=== PATIENT | male | born 1950 | race Caucasian/White ===

== ENCOUNTER 2018-04-04 10:24 | Observation (INO) | payer BC, MEDICARE ==
[~2018-04-04] VITALS: Ht 182.9 cm; Wt 106.6 kg
[2018-04-04] VITALS (17 sets, daily range): BP systolic 72–144; BP diastolic 36–81
[2018-04-04] MEDS ORDERED: ATENOLOL 50 MG TAB PO SCH (18:00)
--- NOTE | 2018-04-04 19:41 | History and Physical ---
PRIMARY CARE PHYSICIAN: Dr. Brown with [facility]. CARE ASSISTANT: Dr. Rendon at [facility]. REASON FOR ADMISSION: Episode of slurred episode and right hand weakness earlier this morning. HISTORY OF PRESENT ILLNESS: Mr. Aron Nance is a 67-year-old male. He has history of hypertension, history of paroxysmal atrial fibrillation, gastroesophageal reflux disease, and history of BPH. He stated that he was in usual state of health until yesterday. The night before, he has taken a dose of Viagra, which did not help him. He worked outside yesterday. 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 He felt very weak and he also felt like he was having some disrupted vision for a brief period of time and he started noticing some slurred speech, hence he drove himself to [facility] and in the emergency room, he had a CT brain done that was negative. He was found to be in normal sinus rhythm. He had a creatinine of 1.3. Other than that, no other abnormality was noted. No focal deficits were noted. He did not have any facial droop. He was having right facial paresthesias that are currently resolved. REVIEW OF SYSTEMS GENERAL: He is afebrile. He had some right upper extremity and right facial weakness and slurred speech that is currently resolved. ENT: Denies any ear, nose, or throat pain or drainage. CARDIOVASCULAR: Denies any chest pain, shortness of breath, palpitations, or syncopal episodes. RESPIRATORY: Denies any cough, shortness of breath, or sputum production. GI: Denies any nausea, vomiting, abdominal pain, or diarrhea. NEUROLOGICAL: Denies any headaches or dizziness. He had right facial and right upper extremity weakness and paresthesias that is currently improved and slurred speech also improved. MUSCULOSKELETAL: Denies any joint pain or swelling. INTEGUMENTARY: Denies any ulcers or rash. PAST MEDICAL HISTORY: Includes history of hypertension, gastroesophageal reflux disease, paroxysmal atrial fibrillation, and BPH. PAST SURGICAL HISTORY: History of hip replacement x2 and history of knee scopes, appendectomy, and colonoscopies. ALLERGIES: NO KNOWN DRUG ALLERGIES. HOME MEDICATIONS: Reviewed per MAR. FAMILY HISTORY: Mother has history of atrial fibrillation. PHYSICAL EXAMINATION VITAL SIGNS: At this time, temperature 98.2, heart rate is 55, respirations of 15, blood pressure 121/65, and SpO2 of 98% on room air. GENERAL: On exam, the patient is awake, alert, and oriented. He is currently not in any acute distress. HEENT: Head is normocephalic, atraumatic. Eyes, normal extraocular movements noted. ENT, moist mucous membranes noted. NECK: Supple. No raised JVD. CARDIOVASCULAR: Rate and rhythm regular. LUNGS: Clear to auscultation bilaterally. GI: Abdomen is soft and nontender. Bowel sounds present. NEUROLOGIC: Cranial nerves II-XII grossly intact. Power and tone is normal in the bilateral upper and lower extremities. PSYCHIATRIC: Normal mood and affect. INTEGUMENTARY: No ulcers or rash. MUSCULOSKELETAL: No joint swelling or tenderness noted. LABORATORY DATA: Labs done in the emergency room; CBC: WBC count of 7.6, hemoglobin 14.9, hematocrit 40.9, and platelet count of 192,000. BMP: Sodium 140, potassium 4.1, chloride 104, CO2 of 28, BUN of 17, creatinine 1.26, and GFR is over 60. LFTs are within normal limits. UA is negative. PT/INR 10.8 and 1.02. ASSESSMENT: A 67-year-old male with; 1. Episode of right upper extremity weakness, slurred speech, and right facial paresthesias and weakness that is currently resolved, possibly a transient ischemic attack. 2. Hypertension. 3. History of paroxysmal atrial fibrillation. 4. History of benign prostatic hypertrophy. PLAN: The patient will be under observation status. Patient is on full-dose aspirin at home, which will be resumed. We will also place him on statin. We will obtain a lipid panel in the morning. We will obtain MRI, carotid Dopplers, and echocardiogram as part of TIA/stroke workup. If the workup is negative and if the patient remains stable without any focal deficits, he will likely be discharged home tomorrow. We will resume all his home medications at this time. CODE STATUS: Full code. Surrogate decision maker is his spouse. Job#: [id number] SHELLY
[2018-04-04] MEDS ORDERED: TERAZOSIN HCL 5 MG CAP PO SCH (21:00)
[2018-04-04] MEDS ORDERED: ATORVASTATIN 10 MG TAB PO SCH (21:00)
[2018-04-05] VITALS: BP 114/59
[2018-04-05 04:00] VITALS: BP 133/69
[2018-04-05 05:11] LABS: CHOL/HDL RATIO 3.4 (3.9-4.7)
[2018-04-05] MEDS ORDERED: PANTOPRAZOLE SOD 40 MG TABEC PO SCH (07:30)
[2018-04-05 08:04] VITALS: BP 127/64
[2018-04-05] MEDS ORDERED: ASPIRIN 325 MG TAB PO SCH (09:00)
[2018-04-05] MEDS ORDERED: TERAZOSIN HCL 5 MG CAP PO SCH (09:00)
[2018-04-05] MEDS ORDERED: TERAZOSIN HCL5 MG PO (11:33)
[2018-04-05] MEDS ORDERED: NEXIUM20 M1 PO (11:33)
[2018-04-05] MEDS ORDERED: ATENOLOL50 MG PO (11:33)
[2018-04-05] MEDS ORDERED: ZEGERID 20 MG1 EACH PO (11:33)
[2018-04-05] MEDS ORDERED: ATORVASTATIN CA20 MG PO (11:36)
--- NOTE | 2018-04-05 12:29 | Discharge Summary ---
DISPOSITION: Discharge the patient home. DISCHARGE DIAGNOSES 1. Right-sided weakness and facial paresthesias that is completely resolved. 2. History of hypertension. 3. Paroxysmal atrial fibrillation. 4. History of benign prostatic hypertrophy. 5. Dyslipidemia. HOSPITAL COURSE: Mr. Aron Nance is a 67-year-old male. The patient presented to the emergency room at [facility] with right-sided weakness and also right facial paresthesias. He had a CT brain done over there that was negative. He was transferred to [facility] for further observation. His symptoms have completely resolved. He was at his baseline mental status and also neurologically, he did not have any deficits when he presented here. He has been in sinus rhythm here during the hospital stay. He is on full-dose aspirin for anticoagulation, which was resumed. All his home medications were continued. He is feeling better and he had echo and carotid Dopplers done, which did not show any significant abnormality. He had a lipid panel done. His HDL was low at 36, hence he was initiated on atorvastatin. Hemoglobin A1c was 5.5. He did not have an MRI done as he had a prosthetic hip. As he is feeling better, he will be discharged home today. He needs to follow up with his primary care physician as outpatient in 1 week. I have seen and examined the patient on the day of discharge. CONDITION AT TIME OF DISCHARGE: Stable. MEDICATIONS: Per NOV. ACTIVITY: As tolerated. DIET: Heart-healthy diet. FOLLOWUP: The patient was advised to follow up with his PCP in 1 week. Job#: [id number] AMY
[2018-04-05] MEDS ORDERED: ATENOLOL 50 MG TAB PO SCH (21:00)
== END 2018-04-05 11:51 | disposition home or self-care (01) ==
LOC: FSED 10:24 → ICU 15:10 → MED/SURG 20:47
PROVIDERS: ADMIT Family Medicine; ATTEND Family Medicine
DX: R20.2 Paresthesia of skin (principal); R47.81 Slurred speech; I48.0 Paroxysmal atrial fibrillation; N40.0 Benign prostatic hyperplasia without lower urinary tract symptoms; I10 Essential (primary) hypertension; R53.1 Weakness; K21.9 Gastro-esophageal reflux disease without esophagitis; Z96.649 Presence of unspecified artificial hip joint; E78.5 Hyperlipidemia, unspecified
CPT/HCPCS: 36415; 80061; 83036; 93005; 93306; 93880; 96360; 97161; G0378 ×2

== ENCOUNTER 2021-02-04 14:46 | Emergency (ER) | payer MEDICARE ==
[~2021-02-04] VITALS: Ht 182.9 cm; Wt 106.6 kg
[~2021-02-04 14:46] MED LIST: ATENOLOL50 MG PO; ATORVASTATIN CA20 MG PO; NEXIUM20 M1 PO; TERAZOSIN HCL5 MG PO; ZEGERID 20 MG1 EACH PO
[2021-02-04] MEDS ORDERED: TERAZOSIN HCL1 MG PO (15:05)
[2021-02-04 15:35] LABS: COLOR,URINE STRAW (YELLOW)
[2021-02-04 15:36] LABS: CLARITY,URINE CLEAR (CLEAR); KETONES,URINE NEGATIVE (NEGATIVE); LEUKOCYTE ESTERASE ,URINE NEGATIVE (NEGATIVE); NITRITE,URINE NEGATIVE (NEGATIVE); PROTEIN,URINE DIPSTICK NEGATIVE (NEGATIVE); URINE UROBILINOGEN 0.2 mg/dL (0.2 - 1)
[2021-02-04 15:48] LABS: BACTERIA,URINE RARE /HPF
== END 2021-02-04 16:19 | disposition home or self-care (01) ==
LOC: ER 14:52
DX: C61 Malignant neoplasm of prostate (principal); R33.8 Other retention of urine; I48.91 Unspecified atrial fibrillation; I10 Essential (primary) hypertension; K21.9 Gastro-esophageal reflux disease without esophagitis; E78.5 Hyperlipidemia, unspecified; Z92.3 Personal history of irradiation; Z88.1 Allergy status to other antibiotic agents; Z88.8 Allergy status to other drugs, medicaments and biological substances; Z79.899 Other long term (current) drug therapy
CPT/HCPCS: 51700; 81001; 87086; 99283

== ENCOUNTER 2022-01-22 12:33 | Observation (INO) | payer MEDICARE ==
[~2022-01-22] VITALS: Ht 188 cm; Wt 101.6 kg
[~2022-01-22 12:33] MED LIST changes: +TERAZOSIN HCL1 MG PO
[2022-01-22 13:14] LABS: BASOPHILS % 0.9 % (0.0-1.0); EOSINOPHILS # (AUTO) 0.2 (0.0-0.4); EOSINOPHILS % 3.4 % (0.0-6.0); HEMATOCRIT 39.8 % (38.2-49.6); LYMPHOCYTES # (AUTO) 0.9 (1.0-3.2); LYMPHOCYTES % 20.5 % (18.0-39.1); MEAN CORPUSCULAR HEMOGLOBIN 29.4 pg (28-32); MEAN CORPUSCULAR HGB CONC 32.7 g/dL (31-35); MONOCYTES # (AUTO) 0.4 (0.2-0.8); MONOCYTES % 9.8 % (4.4-11.3); NEUTROPHILS # (AUTO) 2.8 (2.1-6.9); NEUTROPHILS % 64.9 % (38.7-80.0); PLATELET COUNT 144 x10e3/uL (140-360); RED BLOOD COUNT 4.42 x10e6/uL (4.3-5.7); RED CELL DISTRIBUTION WIDTH 12.9 % (11.7-14.4)
[2022-01-22 13:32] LABS: ALBUMIN 3.4 g/dL (3.5-5.0); ALBUMIN/GLOBULIN RATIO 1.1 (0.8-2.0); ANION GAP 9.1 mmol/L (8-16); CALCIUM 7.9 mg/dL (8.4-10.2); CREATININE, SERUM 1.49 mg/dL (0.72-1.25); POTASSIUM 4.1 mmol/L (3.5-5.1)
[2022-01-22 13:44] LABS: LIPASE 31 U/L (8-78)
[2022-01-22] MEDS ORDERED: SODIUM CHLORIDE FLUSH 10 ML SYR INJ PRN (14:30)
[2022-01-22] MEDS ORDERED: ASPIRIN 81 MG CHEW TAB PO ONE (14:30)
[2022-01-22] MEDS ORDERED: ONDANSETRON HCL INJ 2MG/ML 2ML 2 MG/ML VIAL IV PRN (14:30)
[2022-01-22] MEDS ORDERED: Morphine 2mg Syringe 2 MG/ML SYR IV PRN (14:30)
[2022-01-22] MEDS ORDERED: NITROGLYCERIN 0.4 MG SUBL SL PRN (14:30)
[2022-01-22] MEDS ORDERED: CLONIDINE HCL 0.1 MG TAB PO PRN (14:45)
[2022-01-22] MEDS ORDERED: ACETAMINOPHEN 325 MG TAB PO PRN (14:45)
[2022-01-22 15:26] LABS: FREE THYROXINE INDEX 3.1254 (1.4-3.8); THYROID STIMULATING HORMONE 1.268 uIU/mL (0.350-4.940)
[2022-01-22] MEDS: APIXABAN 5 MG TABLET PO SCH (17:00)
[2022-01-22 19:33] LABS: CREATINE KINASE 130 IU/L (30-200)
[2022-01-22] MEDS ORDERED: ATORVASTATIN 10 MG TAB PO SCH (21:00)
[2022-01-22] MEDS ORDERED: LOSARTAN POTASS25 MG PO (23:51)
[2022-01-22] MEDS ORDERED: ELIQUIS5 MG PO (23:51)
[2022-01-23 05:45] LABS: BASOPHILS % 0.8 % (0.0-1.0); EOSINOPHILS # (AUTO) 0.2 (0.0-0.4); EOSINOPHILS % 3.6 % (0.0-6.0); HEMOGLOBIN 13.8 g/dL (14.0-18.0); LYMPHOCYTES # (AUTO) 1.2 (1.0-3.2); LYMPHOCYTES % 24.7 % (18.0-39.1); MEAN CORPUSCULAR HEMOGLOBIN 29.7 pg (28-32); MEAN CORPUSCULAR HGB CONC 32.9 g/dL (31-35); MEAN CORPUSCULAR VOLUME 90.3 fL (81-99); MONOCYTES # (AUTO) 0.4 (0.2-0.8); MONOCYTES % 9.2 % (4.4-11.3); NEUTROPHILS # (AUTO) 2.9 (2.1-6.9); NEUTROPHILS % 61.5 % (38.7-80.0); PLATELET COUNT 141 x10e3/uL (140-360); RED BLOOD COUNT 4.65 x10e6/uL (4.3-5.7); RED CELL DISTRIBUTION WIDTH 12.9 % (11.7-14.4)
[2022-01-23 06:18] LABS: ALBUMIN 3.3 g/dL (3.5-5.0); ALBUMIN/GLOBULIN RATIO 1.1 (0.8-2.0); ANION GAP 10.9 mmol/L (8-16); CALCIUM 7.7 mg/dL (8.4-10.2); CREATININE, SERUM 1.42 mg/dL (0.72-1.25); POTASSIUM 3.9 mmol/L (3.5-5.1)
[2022-01-23 06:40] LABS: THYROID STIMULATING HORMONE 2.087 uIU/mL (0.350-4.940)
[2022-01-23] MEDS ORDERED: OMEPRAZOLE 20 MG CAP PO SCH ×2 (06:45→09:00)
[2022-01-23] MEDS ORDERED: ZEGERID 20 MG PO SCH (07:30)
[2022-01-23 07:45] VITALS: BP 141/75
[2022-01-23 07:51] LABS: CHOL/HDL RATIO 2.9 (3.9-4.7)
[2022-01-23 07:58] VITALS: BP 141/75
[2022-01-23] MEDS: APIXABAN 5 MG TABLET PO SCH (08:07)
[2022-01-23 08:17] VITALS: BP 141/75
[2022-01-23] MEDS ORDERED: TERAZOSIN HCL 5 MG CAP PO SCH (09:00)
[2022-01-23] MEDS ORDERED: AMIODARONE HCL 200 MG TAB PO SCH ×2 (09:00→21:00)
[2022-01-23] MEDS ORDERED: ASPIRIN 81 MG ENTERIC COATED PO SCH (09:00)
[2022-01-23 11:56] VITALS: BP 131/67
[2022-01-23 12:20] VITALS: BP 131/67
[2022-01-23] MEDS ORDERED: ONDANSETRON HCL 4 MG ORAL DISINTEGRATING TAB PO PRN (13:45)
== END 2022-01-23 13:36 | disposition home or self-care (01) ==
LOC: ER 12:40 → ERHOLD 14:20 → MED/SURG 01-23 07:03
PROVIDERS: ADMIT Internal Medicine; ATTEND Internal Medicine
DX: R07.89 Other chest pain (principal); I10 Essential (primary) hypertension; E78.00 Pure hypercholesterolemia, unspecified; Z85.46 Personal history of malignant neoplasm of prostate; I12.9 Hypertensive chronic kidney disease with stage 1 through stage 4 chronic kidney disease, or unspecified chronic kidney disease; N18.30 Chronic kidney disease, stage 3 unspecified; Z79.01 Long term (current) use of anticoagulants; Z20.822 Contact with and (suspected) exposure to COVID-19; E78.5 Hyperlipidemia, unspecified; K21.9 Gastro-esophageal reflux disease without esophagitis; I48.0 Paroxysmal atrial fibrillation; Z96.643 Presence of artificial hip joint, bilateral; Z96.653 Presence of artificial knee joint, bilateral; M16.0 Bilateral primary osteoarthritis of hip; M17.0 Bilateral primary osteoarthritis of knee; Z88.1 Allergy status to other antibiotic agents; Z88.8 Allergy status to other drugs, medicaments and biological substances; Z86.73 Personal history of transient ischemic attack (TIA), and cerebral infarction without residual deficits
CPT/HCPCS: 36415 ×2; 71046; 80053 ×2; 80061; 82550; 82553; 83690; 84436; 84443 ×2; 84479; 84484; 85025 ×2; 93005; 93017; 93306; 94799; 99284; G0378 ×2; U0002